=== PATIENT | male | born 1970 | race Caucasian/White ===

== ENCOUNTER 2022-09-02 01:04 | Outpatient (CLI) | payer OTHER, SELFPAY ==
--- NOTE | 2022-09-02 | DI.RAD_ITS ---
Exam(s) XR FOOT LT COMPLETE EXAM: XR FOOT LT COMPLETE CLINICAL HISTORY: LT FOOT PAIN, M79.672,? LISFRANC INJURY,PAIN OVER 4-5 METATARSALS. TECHNIQUE: 2D digital imaging was performed. Three views. COMPARISON: No exams were available for comparison FINDINGS: BONES: There is a minimally displaced fracture at the base of the 5th metatarsal without visible exte nsion to the articular surface. No additional fractures. No bony destructive lesion is seen. JOINTS: No dislocation present. Pes planus noted. Mild 1st metatarsal varus and hallux valgus. SOFT TISSUE: Swelling. IMPRESSION: Fracture at the base of the 5th metatarsal. DATA REPOSITORY: RADIATION DOSE DELIVERED:
== END 2022-09-02 01:24 ==
PROVIDERS: Visit Provider Physician Assistant Medical
DX: S92.352A Displaced fracture of fifth metatarsal bone, left foot, initial encounter for closed fracture (principal); X58.XXXA Exposure to other specified factors, initial encounter; M79.672 Pain in left foot
CPT/HCPCS: 73630